=== PATIENT | female | born 1980 | race Caucasian/White ===

== ENCOUNTER → 2017-05-17 | Outpatient (CLI) | payer OTHER ==
--- NOTE | 2017-05-18 10:22 | RADIOLOGY REPORT PS360 ---
MRI-L-SPINE W/O HISTORY: Low back pain with numbness and tingling in the right lower extremity LOW BACK PAIN, OTHER CHRONIC PAIN ORDERING PHYSICIAN: Kaleb Pichardo MD PATIENT AGE: 36 years COMPARISON: None TECHNIQUE: Standard multiplanar multiecho sequences are performed without contrast. 3-D MIP and myelographic images are also rendered and reviewed FINDINGS: There is normal alignment. The spinal cord ends at the T12-L1 level. There is slight reversal of the lumbar lordosis at the L2-L3 level. T12-L1 and L1-L2 have an unremarkable appearance. L2-L3: There is mild concentric bulging disc. There is a small broad-based right paracentral disc herniation with superior extrusion which is causing mild narrowing of the right L2-L3 foramen and lateral recess and abutting the anterior aspect of the right L3 nerve root. L3-L4: Unremarkable. L4-L5: Mild bulging disc eccentric to the left with mild left foraminal narrowing. There may be a small annular tear in the foraminal aspect of the disc at this region. L5-S1: Degenerative disc disease with bulging disc and small broad-based central disc protrusion abutting the anterior medial aspect of both S1 nerve roots. No canal stenosis or other significant anomalies. IMPRESSION: 1. Small broad-based right paracentral disc herniation at L2-L3 with superior extrusion which is causing mild narrowing of the right L2-L3 foramen and lateral recess and abutting the anterior aspect of the right L3 nerve root. 2. Mild bulging disc at L4-L5 eccentric to the left with mild left foraminal narrowing. There may be a small annular tear in the foraminal aspect of the disc at this region. 3. Degenerative disc disease at L5-S1 with bulging disc and small broad-based central disc protrusion abutting the anterior medial aspect of both S1 nerve roots
== END ==
LOC: RAD 14:52
DX: M54.5 Low back pain (principal); G89.29 Other chronic pain